=== PATIENT | male | born 1945 | race Caucasian/White ===

== ENCOUNTER 2017-01-30 09:19 | Day surgery (SDC) | payer OTHER, MEDICAID ==
[2017-01-30] MEDS ORDERED: TETRACAINE 0.5% OPHTH 1 DOSE AFFEYE ONE ×4 (09:45→13:38)
[2017-01-30] MEDS ORDERED: VIGAMOX 0.5% OPHTH 1 DOSE AFFEYE ONE ×5 (09:46→13:48)
[2017-01-30] MEDS ORDERED: PROLENSA OPHTH 1 DOSE AFFEYE ONE (09:57)
[2017-01-30] MEDS ORDERED: NS 500 ML IV 500 ML IV ONE (09:58)
[2017-01-30] MEDS ORDERED: ALPHAGAN-P OPHTH 1 DOSE AFFEYE ONE (09:58)
[2017-01-30] MEDS ORDERED: VISINE-A OPHTH 1 DOSE AFFEYE ONE (09:59)
[2017-01-30] MEDS ORDERED: CYCLOGYL 1% OPHTH 1 DOSE OP ONE ×4 (10:00→10:03)
[2017-01-30] MEDS ORDERED: AK-DILATE 2.5% OPHTH 1 DOSE OP ONE ×4 (10:00→10:03)
[2017-01-30] MEDS ORDERED: MYDRIACIL OPHTH 1 DOSE AFFEYE ONE ×4 (10:00→10:03)
[2017-01-30] MEDS ORDERED: XYLOCAINE-MPF 1% IJ ONE ×2 (13:06→13:38)
[2017-01-30] MEDS ORDERED: ADRENALINE CHL INJ IJ ONE ×2 (13:06→13:38)
[2017-01-30] MEDS ORDERED: BETADINE OPHTH SOLN 5% EACHEYE ONE (13:06)
[2017-01-30] MEDS ORDERED: DUOVISC IO ONE ×2 (13:07→13:38)
[2017-01-30] MEDS ORDERED: BSS OPHTH (PLAIN) 500 ML with VANCOMYCIN HCL 500 MG VIAL 25 MG, ADRENALINE CHL INJ 1 MG IR ONE ×3 (13:38)
[2017-01-30] MEDS ORDERED: DIPRIVAN VIAL ONE (13:44)
[2017-01-30 17:18] VITALS: BP 150/78
== END 2017-01-30 16:15 | disposition home or self-care (01) ==
LOC: SURG1 09:19
PROVIDERS: ATTEND Ophthalmology
PROC: 08DK3ZZ Extraction of Left Lens, Percutaneous Approach (ICD-10-PCS; principal; 2017-01-30 18:30)
PROC: 08RK3JZ Replacement of Left Lens with Synthetic Substitute, Percutaneous Approach (ICD-10-PCS; principal; 2017-01-30 18:30)
DX: H25.12 Age-related nuclear cataract, left eye (principal); H25.042 Posterior subcapsular polar age-related cataract, left eye
CPT/HCPCS: 99100; A4217; J0170; J3370; J3490

== ENCOUNTER 2017-02-20 07:52 | Day surgery (SDC) | payer OTHER, MEDICAID ==
[2017-02-20] MEDS ORDERED: NS 500 ML IV 500 ML IV ONE (08:00)
[2017-02-20] MEDS ORDERED: TETRACAINE 0.5% OPHTH 1 DOSE AFFEYE ONE ×4 (08:30→11:29)
[2017-02-20] MEDS ORDERED: VIGAMOX 0.5% OPHTH 1 DOSE AFFEYE ONE ×4 (08:35→11:40)
[2017-02-20] MEDS ORDERED: ALPHAGAN-P OPHTH 1 DOSE AFFEYE ONE (08:41)
[2017-02-20] MEDS ORDERED: PROLENSA OPHTH 1 DOSE AFFEYE ONE (08:42)
[2017-02-20] MEDS ORDERED: CYCLOGYL 1% OPHTH 1 DOSE OP ONE ×3 (08:43→08:45)
[2017-02-20] MEDS ORDERED: MYDRIACIL OPHTH 1 DOSE AFFEYE ONE ×3 (08:43→08:45)
[2017-02-20] MEDS ORDERED: AK-DILATE 2.5% OPHTH 1 DOSE OP ONE ×3 (08:43→08:45)
[2017-02-20] MEDS ORDERED: BETADINE OPHTH SOLN 5% EACHEYE ONE (11:15)
[2017-02-20] MEDS ORDERED: ADRENALINE CHL INJ IJ ONE ×2 (11:19→11:29)
[2017-02-20] MEDS ORDERED: XYLOCAINE-MPF 1% IJ ONE ×2 (11:19→11:29)
[2017-02-20] MEDS ORDERED: DUOVISC IO ONE ×2 (11:19→11:29)
[2017-02-20] MEDS ORDERED: BSS OPHTH (PLAIN) 500 ML with VANCOMYCIN HCL 500 MG VIAL 25 MG, ADRENALINE CHL INJ 1 MG IR ONE ×6 (11:20)
[2017-02-20 12:09] VITALS: BP 154/83
== END 2017-02-20 12:05 | disposition home or self-care (01) ==
LOC: SURG1 07:52
PROVIDERS: ATTEND Ophthalmology
PROC: 08DJ3ZZ Extraction of Right Lens, Percutaneous Approach (ICD-10-PCS; principal; 2017-02-20 13:30)
PROC: 08RJ3JZ Replacement of Right Lens with Synthetic Substitute, Percutaneous Approach (ICD-10-PCS; principal; 2017-02-20 13:30)
DX: H25.11 Age-related nuclear cataract, right eye (principal); H25.041 Posterior subcapsular polar age-related cataract, right eye
CPT/HCPCS: 99100; A4217; J0170; J3370